=== PATIENT | female | born 1955 | race Caucasian/White ===

== ENCOUNTER 2018-08-19 05:49 | Inpatient (IN) | payer BC, OTHER ==
[2018-08-19] VITALS (25 sets, daily range): BP systolic 114–159; BP diastolic 42–107
[~2018-08-19] VITALS: Ht 157.5 cm; Wt 49.9 kg
--- NOTE | ~2018-08-19 | HC ---
[facility] [place] [address] CONSULTATION Name: FERNANDO CRAIG Room #: 247-P [facility] IN M.R.#: [id number] Admission: 08/19/18 ������������������ Attend Phys: Mega Guy MD Discharge: ������������������ Date of : 57 Report #: [id number] THIS REPORT FOR: //name// CC: Alex Daniels DO Mega Ramos MD DATE OF SERVICE: 08/22/2018 HISTORY OF PRESENT ILLNESS: The patient is seen in consultation at the request of Dr. Guy and the hospitalist regarding diagnosis of small cell lung cancer made at recent bronchoscopy. She was admitted following a bronchoscopy with complaints of worsening shortness of breath and finding of a pneumothorax. She had recently undergone outpatient evaluation for worsening dyspnea and a chest x-ray revealed right hilar and subcarinal lymphadenopathy leading to the above workup. She has a longstanding history of chronic obstructive pulmonary disease, has been following with Dr. Ephraim Cavazos. 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 Dr. Christensen was a radiation therapist and I am trying to obtain those records. She cannot remember the name of her medical oncologist. MEDICATIONS: As in the MFR. ALLERGIES: None known. SOCIAL HISTORY: She is a reformed smoker, stopping a year ago after 25+ pack years. FAMILY HISTORY: Not contributory. REVIEW OF SYSTEMS: As in history of present illness. PHYSICAL EXAMINATION: GENERAL: Shows her to be alert. HEENT: Shows eye glasses. Her mouth is clear. [facility] [address] [place] [address] CONSULTATION Name: FERNANDO CRAIG Room #: 247-P ADM IN .R.#: [id number] Admission: 08/19/18 ������������������ Attend Phys: Mega Guy MD Discharge: ������������������ Date of : 57 Report #: [id number] NECK: Supple. LYMPHATICS: Revealed no supraclavicular adenopathy. She does have crepitation from subcutaneous emphysema. CHEST: Clear. There is chest tube present on the right. ABDOMEN: Soft. SKIN: Normal turgor. EXTREMITIES: No clubbing, cyanosis, or edema. NEUROLOGIC: No focal localizing signs. PSYCHIATRIC: Not agitated or confused. ASSESSMENT: Small cell lung cancer. PLAN: Her pathology has been confirmed with Dr. Serrano and we will plan to proceed with systemic chemotherapy. We will try and obtain her old records regarding her prior radiation therapy if this ends up being limited stage disease. We have talked about obtaining a PET scan as an outpatient to complete her staging lung with brain imaging on discharge. I would anticipate when lung is reexpanded and chest tube is removed, this can be accomplished as an outpatient. Thanks for allowing me to see her with you in consultation and asking me to participate in her care. ��������������������������������������������� ���������������������������������������� By: ��������������������������������������������� 0936 [id number] MD christine Ortiz
[~2018-08-19 05:49] MED LIST: ALBUTEROL2.5 MG/31 INH; ALPRAZOLAM 0.0.25 M1 PO; COLACE100 MG PO; COMPAZINE10 M1; DALIRESP500 MCG PO; DITROPAN XL5 M1 PO; K-DUR10 ME1 PO; LISINOPRIL20 MG PO; OMEPRAZOLE20 M2 PO; OMEPRAZOLE40 MG PO; PREDNISOLONE 5 M5 M1 PO; STIOLTO RESPIMAT4 GM INH; SYMBICORT80 MCG/4.1; SYMBICORT80 MCG/4.1 INH; VENTOLIN HFA 1818 GM INH; VENTOLIN HFA INH8 GM; VESICARE 5 MG TA5 MG; ZOFRAN8 MG
[2018-08-19 11:13] LABS: SOURCE BAL
[2018-08-19 11:14] LABS: CLARITY TURBID; COLOR RED; TOTAL VOLUME 13 mL
[2018-08-19 11:15] LABS: BF NUCLEATED CELLS 292; BF RBC 27039
[2018-08-19 11:32] LABS: BF NEUTROPHILS 85
[2018-08-19 11:33] LABS: BF MACROPHAGE 5
--- NOTE | 2018-08-19 19:24 | NUR ---
1430 - PT TO ICU BED 247 /S DIFFICULTY - MONITORS APPLIED - VSS - AWAKE/ALERT - COMPLAINT OF PAIN - CHEST TUBE INTACT AND TO -20 SUCTION - AT BEDSIDE
--- NOTE | 2018-08-19 19:27 | NUR ---
174 - PT IN RESP DISTRESS - SATS DROP TO 80S - SUBQ EMPH INCREASING - DR. DAVIS CONTACTED AND ORDERS RECEIVED - TROUBLE SHOOTING OF CT SHOWED A SMALL KINK IN THE TUBING - UPON STRAIGHTENING OF TUBING PT STATUS IMMEDIATELY BEGAN IMPROVING - PAIN MEDS GIVEN - STAT PORTABLE CHEST XRAY AT BEDSIDE - AT BEDSIDE
[2018-08-20] VITALS (21 sets, daily range): BP systolic 83–155; BP diastolic 58–88
[2018-08-20 04:17] LABS: HEMOGLOBIN 13.4 gm/dL (12.0-15.0); MCH 30.1 pg (26.0-34.0); MCHC 32.6 g/dL (28.0-37.0); MCV 92.5 fL (80.0-100.0); RBC 4.44 mil/uL (4.20-5.00); RDW 14.2 % (10.5-14.5); WBC 19.1 thou/uL (4.0-11.0)
[2018-08-20 04:25] LABS: MAGNESIUM 1.6 mg/dL (1.8-2.4); POTASSIUM 3.9 mmol/L (3.5-5.1)
--- NOTE | 2018-08-20 05:59 | NUR ---
Pt a/o x 4. O2 3L NC with O2 Sats in mid 90s on average without c/o SOA. After ABG draw this AM, pt c/o SOA. O2 NC increased to 6L with O2 Sats in -. Chest tube site reassessed. No kinks noted as previous assessments throughout this shift. Total chest tube output 20 mL serous for this shift. Shrinking subq emphasema area noted on R anterior chest. No expansion of subq emphasema at right lateral back/chest area. RT called immediately after pt c/o SOA. Breathing treatment given by RT. Pt resting in bed at this time stating "feeling better now". Bed alarm on. Fall precautions maintained. Call light within reach. Will continue to monitor.
[2018-08-20 16:17] LABS: URINE BILIRUBIN NEGATIVE (Negative); URINE BLOOD NEGATIVE (Negative); URINE COLOR YELLOW; URINE GLUCOSE-RANDOM* NEGATIVE (Negative); URINE KETONES 1+ (Negative); URINE PROTEIN (DIPSTICK) NEGATIVE (Negative); URINE SPECIFIC GRAVITY >= 1.030 (1.005-1.035); URINE UROBILINOGEN 0.2 E.U./dl (0.2-1.0)
[2018-08-20 16:19] LABS: URINE CLARITY HAZY; URINE LEUKOCYTES-REFLEX 1+ (Negative); URINE NITRITE-REFLEX POSITIVE (Negative)
[2018-08-20 16:25] LABS: BACTERIA-REFLEX >30 Many /HPF (None Seen); SQUAMOUS 0-3 Few /LPF (0-3); URINE RBC None Seen /HPF (0-2); URINE WBC-REFLEX >25 Many /HPF (0-5)
[2018-08-20 16:26] LABS: CASTS None Seen /LPF (None Seen); CRYSTALS None Seen /LPF (None Seen)
--- NOTE | 2018-08-20 16:34 | NUR ---
PT REMAINS A/O THROUGH SHIFT - PLEASANT AND COOPERATIVE PARTICIPATING IN CARE - OOB X 1 FOR 30 MINUTES - ABLE TO MOVE SELF EASILY ON/OFF BEDPAN - CHEST TUBE REMAINS IN PLACE - LEAK DECREASING - SUBCUTANEOUS EMPHYSEMA REMAINS MOSTLY IN CHEST AND RIGHT LATERAL BACK - PAIN HAS BEEN WELL CONTROLLED /C PO MEDS AND LIDOCAINE PATCH
[2018-08-21] VITALS (41 sets, daily range): BP systolic 92–175; BP diastolic 49–107
--- NOTE | 2018-08-21 07:44 | NUR ---
At 0058, pt accidentally pulled out small-bore chest tube. Pt a/o x 4, on Hi Flow NC 10L, calm and coorperative, no apparent distress noted. Vaseline gauze applied to incision site immediately, Dr. Guy notified at once, new order received. Consent signed for new chest tube insertion. New chest tube inserted by ER doctor this AM. Pt c/o right chest pain after new chest tube insertion. Pain meds given PRN. VSS with O2 Sats in 93-94% on 3L Hi-Flow NC from 8-10L Hi-Flow NC prior to and during new chest tube insertion. Dr. Guy updated with pt condition s/p new chest tube insertion. Pt resting in bed with eyes closed without apparent distress noted. Fall precautions maintained. Call light within reach. Shift change completed with incoming day-shift RN.
--- NOTE | 2018-08-21 12:20 | NUR ---
ASSESSMENT-PT LIVES AT HOME WITH HER WHO IS IN GOOD HEALTH AND WORKS FULL-TIME. THEY LIVE IN A DOUBLE WIDE TRAILER HOME. PT DOES THE COOKING, CLEANING AND LAUNDRY. THEY HAVE 2 SONS, DIL'S AND 9 GRANDKIDS IN THE AREA. PT CONCERNED SHE MAY NEED OXYGEN AT HOME. NURSING REPORTS PT JUST GIVEN LUNG CA DX. PT SAYS HER SPOUSE IS YOUNGER THAN SHE AND THEY BOTH DRIVE. FOLLOWING TO ASSIST WITH DC PLANNING. EMOTIONAL SUPPORT GIVEN.
[2018-08-22] VITALS (28 sets, daily range): BP systolic 93–162; BP diastolic 45–99
--- NOTE | 2018-08-22 06:29 | NUR ---
ASSUMED CARE OF PATIENT AT 0300. VSS, AFEBRILE. C/O PAIN ONCE, GIVEN PRN HYDROCODONE, RELIEF NOTED. CHEST TUBE IN PLACE. USES BED ORTIZ NEEDED. NO OTHER CONCERNS AT THIS TIME.
--- NOTE | 2018-08-22 10:08 | PATH ---
[facility] [address] [place] [address] PATHOLOGY RPT PROCEDURE Name: FERNANDO RCAIG Room #: [facility] IN M.R.#: [id number] ������������������ Admission: 08/19/18 ������������������ Date of : 57 Discharge: Report #: [id number] Path Case #: [id number] Note LCA Accession Number: [id number] TESTS RESULT FLAG UNITS REF RANGE LAB Clinician Provided Cytology Information No. of containers..01 Slide Source: BRONCH BRUSHINGS DIAGNOSIS: 02 BRONCHIAL BRUSHINGS NEGATIVE FOR MALIGNANT CELLS. REACTIVE BRONCHIAL CELLS ARE PRESENT. RED BLOOD CELLS ARE PRESENT. Comment: The cells identified in the subcarinal biopsy tissue ([id number]) are not present in the current brushing smears examined. The biopsy tissue is pending immunohistochemical stains. Please refer to a separate report. Signed out by: 02 Soni Serrano MD, Pathologist NPI- [id number] Performed by: 01 Elisabeth Greene, Dredge Worker ([facility]) FLAG LEGEND: L-Low Normal,H-High Normal,LL-Alert Low,HH-Alert High <-Panic Low,>-Panic High,A-Abnormal,AA-Critical Abnormal Performed at: [address] [place] [address] Hiram Taylor MD, [address] [address] Soni Serrano MD, Specimen Comment: A duplicate report has been generated due to demographic updates. Performed at: [address], [place], [place] [id number] MD Hiram Taylor MD Phone: [phone]
--- NOTE | 2018-08-22 10:08 | PATH ---
[facility] [place] [address] PATHOLOGY RPT PROCEDURE Name: FERNANDO CRAIG Room #: 247-P ADM IN M.R.#: [id number] ������������������ Admission: 08/19/18 ������������������ Date of : 57 Discharge: Report #: [id number] Path Case #: [id number] Note LCA Accession Number: [id number] TESTS RESULT FLAG UNITS REF RANGE LAB Clinician Provided Cytology Information No. of containers..01 Other (Miscellaneous) Source: BRONCH BRUSHTIP DIAGNOSIS: BRONCH BRUSHTIP INCONCLUSIVE. REACTIVE BRONCHIAL CELLS ARE PRESENT. PULMONARY MACROPHAGES (DUST CELLS) ARE PRESENT. Comment: Few atypical cells are identified with high nuclear to cyotplasmic ratio. Much of the specimen is comprised of reactive bronchial epithelial cells.The limited nature precludes a definitive interpretation. Diffential diagnosis includes neoplastic cells or reactive cells. [id number], subcarinal mass biopsy tissue is pending immunohistochemical stains. Please refer to a separate report to follow. Signed out by: 02 Soni Serrano MD, Pathologist NPI- [id number] Performed by: 01 Elisabeth Greene, Archives Technician (AS[facility]) FLAG LEGEND: L-Low Normal,H-High Normal,LL-Alert Low,HH-Alert High <-Panic Low,>-Panic High,A-Abnormal,AA-Critical Abnormal Performed at: [address] [place] [address] Hiram Taylor MD, [address] [address] Soni Serrano MD, Specimen Comment: A duplicate report has been generated due to demographic updates. Performed at: [address], [place], [place] [id number] MD Hiram Taylor MD Phone: [phone]
--- NOTE | 2018-08-22 10:08 | PATH ---
[facility] [address] [place] [address] PATHOLOGY RPT PROCEDURE Name: FERNANDO CRAIG Room #: [facility]-P ADM IN M.R.#: [id number] ������������������ Admission: 08/19/18 ������������������ Date of : 57 Discharge: Report #: [id number] Path Case #: [id number] Note LCA Accession Number: [id number] TESTS RESULT FLAG UNITS REF RANGE LAB Clinician Provided Cytology Information No. of containers..01 Slide Source: [A] 01 BRONCH MICRO BRUSH DIAGNOSIS: [A] 02 BRONCH MICRO BRUSH SUSPICIOUS FOR MALIGNANCY. REACTIVE BRONCHIAL CELLS ARE PRESENT. RED BLOOD CELLS ARE PRESENT. Comment: Cells identified in these smears resemble the ones noted in the biopsy tissue [id number], designated as the subcarinal mass. That specimen is pending immunohistochemical stain analysis. Please refer to a separate report to follow. Signed out by: 02 Soni Serrano MD, Pathologist NPI- [id number] Performed by: 01 Elsiabeth Greene, [employer] Senior Officer ([employer]) FLAG LEGEND: L-Low Normal,H-High Normal,LL-Alert Low,HH-Alert High <-Panic Low,>-Panic High,A-Abnormal,AA-Critical Abnormal Performed at: [address] [place] [address] Hiram Taylor MD, [address] [address] Soni Serrano MD, Specimen Comment: [id number] Specimen Comment: A duplicate report has been generated due to demographic updates. Performed at: [address], [place], [place] [id number] MD Hiram Taylor MD Phone: [phone]
--- NOTE | 2018-08-22 12:10 | PATH ---
[facility] [place] [address] PATHOLOGY RPT PROCEDURE Name: ANGELITA PRESCOTTAndrea Kelley Room #: 247-P [facility] IN M.R.#: [id number] ������������������ Admission: 08/19/18 ������������������ Date of : 57 Discharge: Report #: [id number] Path Case #: [id number] LCA Accession Number: [id number] . 01 Material submitted: . PART A: SUBCARINAL MASS BIOPSY PART B: RIGHT HILAR MASS BIOPSY . 01 Clinical history: . Carinal mass Right hilar mass . 02 Diagnosis: A. Subcarinal mass, biopsy: - MINUSCULE FRAGMENTS MOST COMPATIBLE WITH A SMALL CELL CARCINOMA (PLEASE SEE COMMENT). . B. Tissue designated as "right hilar mass", biopsy: - No tissue present for evaluation. (IUV:jayla; 08/21/2018) QMS/08/21/2018 . 02 Comment: Immunohistochemical stains are performed on block A1 to support the diagnosis rendered and included CD56, CD45, AE1/AE3, synaptophysin, chromogranin, and TTF-1. The tumor shows perinuclear dot-like reactivity to AE1/AE3, shows granular reactivity with synaptophysin and nuclear reactivity with TTF-1. The tumor is nonreactive to the remainder of stains. The nonreactive CD45 excludes a possibility of a lymphoma. . Dr. Nisa Simons has seen insurance follow up representative slides of this case and concurs with the diagnosis rendered. Findings of this case are discussed with Dr. Mega Guy in the morning of 08/21/18. . (IUV:jayla; 08/21/2018) . 02 Electronically signed: . Soni Serrano MD, Pathologist NPI- [id number] . 01 Gross description: . A. The specimen is received in formalin, labeled "April Prescott, subcarinal mass" and consists of a few fragments of soft barnard tissue measuring 0.5 x 0.3 x 0.1 cm in aggregate which are entirely submitted in A1. . B. The specimen is received in formalin, labeled "April Prescott, R hilar biopsy" and consists of a few minute fragments of santiago-[place] [address] PATHOLOGY RPT PROCEDURE Name: APRIL PRESCOTT Room #: 247-P ADM IN M.R.#: [id number] ������������������ Admission: 08/19/18 ������������������ Date of : 57 Discharge: Report #: [id number] Path Case #: [id number] measuring 0.4 x 0.1 x 0.1 cm in aggregate which are entirely submitted in B1. Due to the nature of the specimen it may not survive processing. (SDY; 08/19/2018) SYU/SYU . 02 Pathologist provided ICD-10: C34.00 . 02 CPT . 846496, 431372, X97916, Q20512 Specimen Comment: A courtesy copy of this report has been sent to Specimen Comment: [phone], , . Specimen Comment: Report sent to ,DR JAY / DR WAGGONER Specimen Comment: A duplicate report has been generated due to demographic updates. Performed at: [address], [place] [id number] MD Hiram Taylor MD Phone: [phone] Performed at: [address] [id number] MD Soni Serrano MD Phone: [phone]
--- NOTE | 2018-08-22 13:41 | NUR ---
PT TOLERATED BOTH MEALS. HYDROCODONE/APAP GIVEN X 2 FOR R POSTERIOR BACK/SHOULDER AREA DISCOMFORT DESCRIBED ACHY PRESSURE. UP TO CHAIR, BATHED SELF, BED CHANGED, LUNGS DIMINSHED POSTERIORLY, 02 3L/NC, UP TO BSC TO VOID. SPOUSE PRESENT AND PROVIDING SUPPORT. DEMETRIUS, FARM MACHINE TENDER PRESENT TO START CHEMO.
--- NOTE | 2018-08-22 15:25 | NUR ---
DAY 1 OF 3 DAY CHEMO PROTOCOL TO START TODAY. VISITED WITH DR. FRANK' NURSE, SAUL, TO CONFIRM START DAY IS TODAY. PT STATES DR. FRANK WAS IN TODAY AND VERIFIED TODAY START DATE. REVIEWED ORDERS AND CLARIFIED PREMEDS WITH DR. FRANK YESTERDAY. PT HAS HAD CHEMO IN THE PAST FOR THROAT CANCER BUT IS UNABLE TO RECALL WHAT DRUGS SHE TOOK. CALLED OFFICE TO SEE IF THEY COULD TELL ME WHAT SHE TOOK BUT THEY HAVE NOT YET BEEN ABLE TO SECURE THE CHART. WILL WATCH PT CLOSELY IN THE EVENT SHE HAS HAD CARBO IN THE PAST. PT INSTRUCTED TO INFORM US IF SHE HAS ANY S/S OF ALLERGIC REACTION. PREMEDS GIVEN ORDERED. NEW PERIPHERAL IV PLACED PRIOR TO START OF CHEMO PT STATES PREVIOUS SITE WAS A LITTLE TENDER WITH INFUSION. NEW IV IN R AC, EXCELLENT BLOOD RETURN. CARBO INFUSING AT THIS TIME, ABOUT HALF WAY COMPLETE. VS REMAIN STABLE (REFER TO PCI FOR Q15M VS). CURRENT BP 157/68, HR 84, SAT 94. TEACHING COMPLETED WITH PT, FOR CHEMO PROTOCOL AND SAFE HANDLING PRECAUTIONS. REVIEWED SAFE HANDLING PRECAUTIONS WITH PT'S NURSE, HARJIT, AND SIGNAGE POSTED ON DOOR. SAFE HANDLING CART OUTSIDE DOOR OF ROOM. REMAINS AT SIDE. PT WATCHING TV WITHOUT COMPLAINTS.
--- NOTE | 2018-08-22 19:15 | NUR ---
PT DENIED ANY SYMPTOMS AT THIS TIME FROM CHEMO. NOTED PT COMPLEXION DULL WITH BROWNISH TINT. SMALL AMOUNT OF EVENING MEAL CONSUMED PER PT PREFERENCE, DENIES NAUSEA AT THIS TIME. CONTINUING CHEMO PRECAUTIONS, REPORT TO NARESH DAVILA.
[2018-08-23] VITALS (20 sets, daily range): BP systolic 107–170; BP diastolic 45–104
--- NOTE | 2018-08-23 07:25 | NUR ---
UNEVENTFUL NIGHT FOR PT, PT WELL CONTROLLED , NO NAUSEA, VOIDING ADEQUATE AMOUNTS , SNACKING DURING THE NIGHT, VSS. CHEST TUBE IN PLACE, PATENT, DRAINING TO WATER SEAL.
--- NOTE | 2018-08-23 10:20 | NUR ---
ASSESSMENTS DOCUMENTED. CHEST XRAY THIS AM COMMUNICATED TO DR. DAVIS. ORDERS FOR IR TO REMOVE CT. PT TO HAVE CHEMO THIS AFTERNOON. NOTED MRSA IN SPUTUM - ON ISOLATION. COMMUNICATED TO DR. SILVA FOR CHANGE IN ANTIBIOTIC. REPORT GIVEN TO CM INFANTE.
--- NOTE | 2018-08-23 11:08 | NUR ---
Rt side chest tube removed in pt's room. without difficulty. Placed air occlusive sterile dsg with vas gauze over site. Pt tolerarated well. VSS. NO comlpications noted. Pt reading/ resting quietly in bed post procedure without complaints
--- NOTE | 2018-08-23 14:44 | NUR ---
PT ON DAY 2 OF CHEMO. CHEST TUBE IS OUT NOW. REMAINS ON O2 3 L NC. THERAPY EVALS ORDERED AND PENDING. ON IV VANCO FOR MRSA + SPUTUM.
--- NOTE | 2018-08-23 15:14 | NUR ---
DAY 2 OF CHEMO STARTED. PREMEDS GIVEN ORDERED. NEW IV WAS PLACED BY VASCULAR ACCESS TEAM IN PROXIMAL L FOREARM, GREAT BLOOD RETURN, PATENT IV. RESPIRATORY THERAPIST ASSISTANT-16 BEGUN AND SET TO INFUSE OVER 1 HOUR. REVIEWED TEACHING WITH PT AND DISCUSSED WHAT TO EXPECT ONCE DISMISSED: WEEKLY LABS, CHEMO AGAIN IN 3 WEEKS, F/U VISIT WITH CAMP DISHWASHER AT [facility] TO DO MORE THOROUGH TEACHING AND SYMPTOM MANAGEMENT VISIT. REMINDED PT TO CALL OFFICE (NUMBERS PROVIDED FOR BOTH THE NURSE DIRECT LINE FOR M-F DAYTIME CALLS AND THE MAIN OFFICE NUMBER FOR AFTER HOURS). PT HAS THESE NUMBERS PROGRAMMED INTO HER CELL PHONE. PT'S SPOUSE MARIANELA RECORDS FROM CHEMO GIVEN IN 2010 WHICH SHOWED SHE RECEIVED CHEMORADIOTHERAPY WITH CISPLATIN GIVEN. PT DEMONSTRATES GOOD UNDERSTANDING OF SITUATION, CHEMO, WHAT TO EXPECT, NEXT STEPS.
--- NOTE | 2018-08-23 16:14 | NUR ---
PT COMPLETED 2ND DOSE OF VP[facility] INCIDENT, VSS, NO S/S REACTION, NO COMPLAINTS VERBALIZED, IV REMAINS PATENT. VANCOMYCIN RESUMED AT THIS TIME.
--- NOTE | 2018-08-23 16:29 | NUR ---
ASSUMED CARE OF PT AT 1100 THIS SHIFT. PT HAS BEEN COOPERATIVE, HAS HAS DENIED ANY PAIN SINCE CHEST TUBE TAKEN OUT. PT'S IV WAS INFILTRATED, WAS TAKEN OUT, NEW IV PLACED BY IV TEAM. HAS HAD CHEMO THERAPY INFUSION BY CHEMO NURSE, TOLERATED IT WELL. PT WAS STARTED ON VANCOMYCIN, HOWEVER HAD TO BE HELD FOR CHEMO, RESTARTED WHEN CHEMO FINISHED. PT HAS TRANSFER ORDERS OUT OF ICU. PT HAS HAD VISITORS THIS SHIFT, EDUCATION WAS PROVIDED. PLAN OF CARE IS TO CONTINUE TO MONITOR CLOSELY AND TO TRANSFER PT OUT OF ICU WHEN BED IS AVAILABLE.
[2018-08-24] VITALS (9 sets, daily range): BP systolic 127–172; BP diastolic 53–74
--- NOTE | 2018-08-24 04:23 | NUR ---
PT'S VSS OVERNIGHT, NO DISTRESS NOTED ON 3.5L NC, PT DOES DESAT EASILY W/ EXERTION DOWN TO 88% ASSESSMENTS PER DOCUMENTATION. PT IN NSR 60-70'S MOST OF THE NIGHT, PT DOES GET TACHY 100-120'S W/ MOVEMENT. ADEQUATE UOP PER BEDPAN. ADEQUATE PO INTAKE W/ ENSURE SUPPLEMENT WELL. PT LUNG'S SIGNIFICANTLY DIMINISHED POSTERIORLY, ANTERIORLY LUNGS COARSE W/ CRACKLES (SUBQ AIR BILATERAL UPPER CHEST DOWN TO RIGHT LATERAL CHEST PUNCTURE). CT SITE CLEAN/DRY/INTACT. BEDSIDE REPORT GIVEN TO NARESH DAVILA. PT TRANSFERRED TO CCU BY WHEELCHAIR/O2 WITHOUT COMPLICATIONS.
[2018-08-24 05:17] LABS: ABSOLUTE NEUTROPHILS 12.9 thou/uL (1.4-8.2); BASOPHILS 0.3 % (0.0-2.0); EOSINOPHILS 0.1 % (0.0-3.0); HEMATOCRIT 39.4 % (37.0-47.0); HEMOGLOBIN 12.8 gm/dL (12.0-15.0); LYMPHOCYTES 1.4 % (24.0-44.0); MCH 30.6 pg (26.0-34.0); MCHC 32.5 g/dL (28.0-37.0); MCV 94.1 fL (80.0-100.0); MONOCYTES 3.9 % (1.0-8.0); PLATELET COUNT 294 thou/uL (150-400); POLYS 94.3 % (36.0-66.0); RBC 4.18 mil/uL (4.20-5.00); RDW 14.3 % (10.5-14.5); WBC 13.7 thou/uL (4.0-11.0)
[2018-08-24 05:31] LABS: ALBUMIN 2.6 g/dL (3.4-5.0); CALCIUM 9.1 mg/dL (8.5-10.1); CREATININE 0.7 mg/dL (0.6-1.0); MAGNESIUM 1.9 mg/dL (1.8-2.4); POTASSIUM 4.7 mmol/L (3.5-5.1); TOTAL BILIRUBIN 0.3 mg/dL (<0.1-1.0); TOTAL PROTEIN 6.4 g/dL (6.4-8.2)
--- NOTE | 2018-08-24 08:02 | NUR ---
PT TRANSFERED FROM ICU THIS MORNING. PT PROGRESSING WELL TOWARDS GOALS, NO COMPLICATIONS FROM CHEMO , VITALS WNL, PT ON 3L BY NASAL CANNULA, PT GETS SOA WITH EXERTION AND DESATS.
--- NOTE | 2018-08-24 14:21 | NUR ---
PATIENT DOING WELL WITH NO COMPLAINTS OF NAUSEA/VOMITING. TOLERATED DIET. DAY #3 OF CHEMOTHERAPY. ALL LABS WNL. DENIES BLEEDING. NEW IV PLACED IN LAC, RECEIVED GOOD BLOOD RETURN AND FLUSHED EASILY. PREMEDS OF BENADRYL PO AND DECADRON IV GIVEN. RC FROM PHARMACY CHECKED CHEMO WITH THIS RN. ETOPOSIDE STARTED USING CHEMO PRECAUTIONS. PATIENT IN GOOD SPIRITS. FOLLOWUP CARE HAS BEEN ARRANGED. PLANS ARE TO DISCHARGE SOON. MONITORING CLOSELY. AND FAMILY AT BEDSIDE.
--- NOTE | 2018-08-24 20:00 | NUR ---
PATIENT ALERT AND ORIENTED. TOLERATED CHEMO INFUSTION WELL AND WOULD LIKE TO BE DISCHARGE HOME EMI. DR HURT ORDERED RT O2 SAT EXERCISE TEST AND NEEDS TO BE COMPLETED PRIOR TO DISCHARGE. PATIENT REQUEST INHALERS FOR HOME USE. DR. DAVIS AWARE. CHEMO NURSE INDICATED PATIENT WOULD NEED MED FOR NAUSEA AFTER DISCHARGE. AT BEDSIDE FOR MOST OF THE DAY. PATIENT WOULD LIKE TO BE DISCHARGED EMI ON Sunday.
--- NOTE | 2018-08-25 03:52 | NUR ---
ASSESSMENT DOCUMENTED.PT BEEN RESTING IN NO ACUTE DISTRESS.S/P CHEMO W/O ADVERSE RXS.PT DENIES NAUSEA OR ANY OTHER DISCOMFORT.SR ON MONITOR.ON 02 AT 2LITERS PNCS.SATS ADEQUATE.SPOUSE AT BEDSIDE.PT TO DISCHARGE TO HOME THIS MORNING.I WILL CONT TO MONITOR PER POC.
[2018-08-25 05:00] VITALS: BP 168/64
[2018-08-25 08:00] VITALS: BP 135/51
[2018-08-25] MEDS ORDERED: LIDOPATCH1 EACH TRANSDERM (10:04)
[2018-08-25] MEDS ORDERED: MAGNESIUM400 MG PO (10:04)
[2018-08-25] MEDS ORDERED: DOXYCYCLINE HYC50 MG PO (10:04)
[2018-08-25] MEDS ORDERED: ALPRAZOLAM 0.0.25 M1 PO (10:04)
[2018-08-25] MEDS ORDERED: PREDNISONE 20 M20 M1 PO (10:04)
[2018-08-25 11:05] VITALS: BP 123/67
[2018-08-25 11:40] VITALS: BP 135/51
--- NOTE | 2018-08-25 12:42 | NUR ---
PT DISCHARGED TO HOME /C [facility] AND [facility] OXYGEN AT 2L BOTH [facility] ARE AWARE THAT PT IS BEING DISCHARGED TODAY PT WHEEL CHAIRED TO POV - DRIVING
--- NOTE | 2018-08-27 16:46 | NUR ---
PT. DISCHARGED TO HOME WITH O2 [facility] DELIVERED O2 TO HOME AND DCP F/U WITH AGENCY AND FAXED O2 SAT RESULT AND PROG. NOTE AND FACE SHEET TO [facility]. INFO RECEIVED.
== END 2018-08-25 13:30 | disposition home health service (06) | DRG 166 ==
LOC: CATH 05:49 → TBA 05:59 → CATH 10:12 → ICU 15:14 → CATH 15:40 → 2N 08-24 04:42
PROVIDERS: Pediatrics; ADMIT Internal Medicine
PROC: 0B9D8ZX Drainage of Right Middle Lung Lobe, Via Natural or Artificial Opening Endoscopic, Diagnostic (ICD-10-PCS; principal; 2018-08-19)
PROC: 0BBK8ZX Excision of Right Lung, Via Natural or Artificial Opening Endoscopic, Diagnostic (ICD-10-PCS; principal; 2018-08-19)
PROC: 07B74ZX Excision of Thorax Lymphatic, Percutaneous Endoscopic Approach, Diagnostic (ICD-10-PCS; principal; 2018-08-19)
PROC: 0W9900Z Drainage of Right Pleural Cavity with Drainage Device, Open Approach (ICD-10-PCS; principal; 2018-08-19)
PROC: 0BDD8ZX Extraction of Right Middle Lung Lobe, Via Natural or Artificial Opening Endoscopic, Diagnostic (ICD-10-PCS; principal; 2018-08-19)
DX: J93.83 Other pneumothorax (principal); J96.21 Acute and chronic respiratory failure with hypoxia; J96.22 Acute and chronic respiratory failure with hypercapnia; J18.9 Pneumonia, unspecified organism; C34.90 Malignant neoplasm of unspecified part of unspecified bronchus or lung; E46 Unspecified protein-calorie malnutrition; J44.0 Chronic obstructive pulmonary disease with (acute) lower respiratory infection; D72.829 Elevated white blood cell count, unspecified; K21.9 Gastro-esophageal reflux disease without esophagitis; I10 Essential (primary) hypertension; R59.1 Generalized enlarged lymph nodes; F41.1 Generalized anxiety disorder; Z85.818 Personal history of malignant neoplasm of other sites of lip, oral cavity, and pharynx; Z92.21 Personal history of antineoplastic chemotherapy; Z92.3 Personal history of irradiation; Z87.891 Personal history of nicotine dependence; Z68.20 Body mass index [BMI] 20.0-20.9, adult
CPT/HCPCS: 10078; 10081; 62110; 62900; 70005

== ENCOUNTER 2018-09-01 19:19 | Emergency (ER) | payer BC, OTHER ==
[~2018-09-01] VITALS: Ht 157.5 cm; Wt 53.5 kg
[~2018-09-01 19:19] MED LIST changes: +DOXYCYCLINE HYC50 MG PO; +LIDOPATCH1 EACH TRANSDERM; +MAGNESIUM400 MG PO; +PREDNISONE 20 M20 M1 PO
[2018-09-01 20:04] LABS: HEMOGLOBIN 11.2 gm/dL (12.0-15.0); PLATELET COUNT 57 thou/uL (150-400)
[2018-09-01 20:06] LABS: MCH 31.1 pg (26.0-34.0); MCHC 33.9 g/dL (28.0-37.0); MCV 91.8 fL (80.0-100.0); RBC 3.59 mil/uL (4.20-5.00); RDW 13.4 % (10.5-14.5)
[2018-09-01 20:06] LABS: URINE BILIRUBIN NEGATIVE (Negative); URINE BLOOD NEGATIVE (Negative); URINE CLARITY CLEAR; URINE COLOR YELLOW; URINE GLUCOSE-RANDOM* NEGATIVE (Negative); URINE KETONES NEGATIVE (Negative); URINE LEUKOCYTES-REFLEX NEGATIVE (Negative); URINE NITRITE-REFLEX NEGATIVE (Negative); URINE PROTEIN (DIPSTICK) NEGATIVE (Negative); URINE UROBILINOGEN 0.2 E.U./dl (0.2-1.0)
[2018-09-01 20:07] LABS: ANION GAP 6 mmol/L (7-16); BUN 10 mg/dL (7-18); CHLORIDE 98 mmol/L (98-107); CO2 34 mmol/L (21-32); CREATININE 0.8 mg/dL (0.6-1.0); GLUCOSE 97 mg/dL (74-106); POTASSIUM 4.3 mmol/L (3.5-5.1); SODIUM 138 mmol/L (136-145)
[2018-09-01 20:08] LABS: WBC 0.5 thou/uL (4.0-11.0)
[2018-09-01 20:15] LABS: ALBUMIN 3.1 g/dL (3.4-5.0); MAGNESIUM 1.5 mg/dL (1.8-2.4); SGOT 12 U/L (15-37); SGPT 21 U/L (30-65); TOTAL BILIRUBIN 0.6 mg/dL (<0.1-1.0); TOTAL PROTEIN 6.5 g/dL (6.4-8.2); TROPONIN-I <0.06 ng/mL (<0.06)
--- NOTE | 2018-09-01 20:26 | EKG ---
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1955 Requested By: Brad Luu Order Number: [id number] MD: Zeb Juárez Measurements Intervals [place] Rate: 86 P: 67 LA: 165 QRS: 48 QRSD: 83 T: 65 QT: 311 QTc: 372 Interpretive Statements Sinus rhythm Atrial premature complexes Anteroseptal infarct, age indeterminate Compared to ECG 02/15/2011 07:26:31 Atrial premature complex(es) now present Myocardial infarct finding still present Electronically Signed On 09-01-2018 20:26:12 MANAGER ZONE by Zeb Juárez [email or web address] ��������������������������������������������� <ELECTRONICALLY SIGNED> ���������������������������������������� By: Zeb Juárez MD ��������������������������������������������� 09/01/182025 31 31 Zeb Juárez MD /EPI
[2018-09-01 20:48] LABS: ATYPICAL LYMPHS 2 %; PLATELET ESTIMATE DEC
[2018-09-01 20:49] LABS: TOXIC GRANULATION 3+
[2018-09-01] MEDS ORDERED: OSELB75 PO (20:52)
[2018-09-01] MEDS ORDERED: TRAMADOL 50 MG50 MG PO (21:27)
[2018-09-01 21:33] VITALS: BP 159/63
== END 2018-09-01 21:33 | disposition home or self-care (01) ==
LOC: ER 19:19
PROVIDERS: Emergency Medicine
DX: B37.0 Candidal stomatitis (principal); C34.91 Malignant neoplasm of unspecified part of right bronchus or lung; E83.42 Hypomagnesemia; J10.1 Influenza due to other identified influenza virus with other respiratory manifestations; D72.819 Decreased white blood cell count, unspecified; D69.6 Thrombocytopenia, unspecified; I48.91 Unspecified atrial fibrillation; I10 Essential (primary) hypertension; K21.9 Gastro-esophageal reflux disease without esophagitis; J44.9 Chronic obstructive pulmonary disease, unspecified; Z87.891 Personal history of nicotine dependence; Z79.899 Other long term (current) drug therapy

== ENCOUNTER → 2018-09-19 | Outpatient (CLI) | payer BC, OTHER ==
[~2018-09-19] VITALS: Ht 157.5 cm; Wt 47.2 kg
[~2018-09-19] MED LIST changes: +OSELB75 PO; +TRAMADOL 50 MG50 MG PO
[2018-09-19 10:12] VITALS: BP 129/62
== END | disposition home or self-care (01) ==
LOC: SPEC 09:39
DX: Z45.2 Encounter for adjustment and management of vascular access device (principal); C34.91 Malignant neoplasm of unspecified part of right bronchus or lung; I10 Essential (primary) hypertension; J44.9 Chronic obstructive pulmonary disease, unspecified; K21.9 Gastro-esophageal reflux disease without esophagitis; Z98.890 Other specified postprocedural states; Z79.899 Other long term (current) drug therapy; Z85.819 Personal history of malignant neoplasm of unspecified site of lip, oral cavity, and pharynx

== ENCOUNTER 2018-10-23 08:55 | Inpatient (IN) | payer BC, OTHER ==
[~2018-10-23] VITALS: Ht 157.5 cm; Wt 42.6 kg
--- NOTE | ~2018-10-23 | P ---
[facility] [place] [address] PROCEDURE REPORT Name: FERNANDO CRAIG Room #: 463-P [facility] IN M.R.#: [id number] Admission: 10/23/18 ������������������ Attend Phys: Jr Hernandez MD Discharge: ������������������ Date of : 57 Report #: [id number] THIS REPORT FOR: //name// CC: Alex Cavazos MD BRIEF HISTORY: The patient is a 62-year-old woman who has a history of a small cell lung cancer who recently received radiation therapy and concomitant chemotherapy. She presented to [place] with history of melenic stools. She also has a prior history of throat cancer with radiation therapy. In addition, she is neutropenic. PREOPERATIVE DIAGNOSIS: Melena. POSTOPERATIVE DIAGNOSES: 1. Severe segmental esophagitis, mid esophagus, likely secondary to recent therapy. 2. High-grade benign appearing stricture, upper esophageal sphincter. MEDICATIONS: Deep sedation with propofol per anesthesia. SPECIMEN: Biopsies of esophagitis. ESTIMATED BLOOD LOSS: 3 mL. PROCEDURE: EGD with balloon dilation of esophageal stricture and biopsy. FINDINGS: Prior to propofol sedation, procedure of upper endoscopy was discussed with the patient as well as potential risks and its complications. She indicates she understands and desires to proceed. DESCRIPTION OF PROCEDURE: With the patient in left lateral decubitus position, the Olympus video endoscope was inserted into the oropharynx. Upon passage of the scope into the oropharynx, I was unable to pass the scope. Beyond the level of the cricopharyngeus, there was a smooth benign appearing stricture. It was too small to allow forward passage of the scope. We then advanced an 8, 9, 10-mm balloon with guidewire with initially guidewire, then balloon catheter through the strictured area. We dilated all 3 levels and following dilation at a 10-mm level, the scope still would not pass. We then passed an 11, 12 and 13-mm catheter again over guidewire. After dilation with the 11-mm balloon, the scope would pass. The stricture was completely smooth and benign. Following dilation, there was a very minor superficial mucosal tear. The mucosa in the proximal esophagus otherwise was normal. However, in the mid esophagus, there [address] [address] PROCEDURE REPORT Name: FERNANDO CRAIG Room #: 463-P [facility] IN .R.#: [id number] Admission: 10/23/18 ������������������ Attend Phys: Jr Hernandez MD Discharge: ������������������ Date of : 57 Report #: [id number] was a 5-6 cm segment of diffuse circumferential esophagitis consistent with the segment of radiation esophagitis. There were distinct margins proximally and distally. The mucosa beyond the stricture down the squamocolumnar junction was normal. I also might point out there was no evidence of active bleeding. The squamocolumnar junction was normal. The scope was advanced in the stomach, which was examined on end view as well as retroflexed views. There was normal appearing gastric mucosa. Upon retroflexion, no mass lesions were seen. The pylorus, duodenal bulb, and postbulbar duodenal sweep were all inspected and noted to be unremarkable. At that point, the scope was slowly withdrawn and careful circumferential views confirmed the above findings. The patient tolerated procedure well. Biopsies were obtained to the esophagitis. DISPOSITION: The patient with recent melenic stools. She has significant radiation esophagitis, which certainly may have been the source of her melena, but active bleeding is not seen today. Biopsies were obtained. We will continue the patient on PPI and also sucralfate slurry. In addition, she may benefit from further dilation of her upper esophageal sphincter in the future. ��������������������������������������������� ���������������������������������������� By: ��������������������������������������������� [id number] Alvin Patel MD /dudley
[2018-10-23 08:56] VITALS: BP 141/70
[2018-10-23 09:18] LABS: URINE BILIRUBIN NEGATIVE (Negative); URINE BLOOD 1+ (Negative); URINE CLARITY CLEAR; URINE COLOR YELLOW; URINE GLUCOSE-RANDOM* NEGATIVE (Negative); URINE KETONES TRACE (Negative); URINE LEUKOCYTES-REFLEX NEGATIVE (Negative); URINE NITRITE-REFLEX NEGATIVE (Negative); URINE PROTEIN (DIPSTICK) 1+ (Negative); URINE SPECIFIC GRAVITY 1.015 (1.005-1.035); URINE UROBILINOGEN 0.2 E.U./dl (0.2-1.0)
[2018-10-23 09:28] LABS: BACTERIA-REFLEX >30 Many /HPF (None Seen); CASTS None Seen /LPF (None Seen); CRYSTALS None Seen /LPF (None Seen); SQUAMOUS 0-3 Few /LPF (0-3); URINE RBC 0-2 Rare /HPF (0-2); URINE WBC-REFLEX 0-5 Rare /HPF (0-5)
[2018-10-23] MEDS ORDERED: ZYPREXA 10 MG T10 MG PO (09:45)
[2018-10-23 09:48] LABS: HEMATOCRIT 21.6 % (37.0-47.0); HEMOGLOBIN 7.7 gm/dL (12.0-15.0); MCH 31.3 pg (26.0-34.0); MCHC 35.6 g/dL (28.0-37.0); MCV 87.9 fL (80.0-100.0); PLATELET COUNT 115 thou/uL (150-400); RBC 2.45 mil/uL (4.20-5.00); RDW 13.5 % (10.5-14.5)
[2018-10-23 09:51] LABS: WBC 0.8 thou/uL (4.0-11.0)
[2018-10-23 10:08] LABS: ALBUMIN 2.8 g/dL (3.4-5.0); ANION GAP 9 mmol/L (7-16); BUN 19 mg/dL (7-18); CALCIUM 6.6 mg/dL (8.5-10.1); CHLORIDE 88 mmol/L (98-107); CO2 33 mmol/L (21-32); CREATININE 2.1 mg/dL (0.6-1.0); GLUCOSE 106 mg/dL (74-106); LIPASE 64 U/L (73-393); SGOT 19 U/L (15-37); SGPT 14 U/L (30-65); SODIUM 130 mmol/L (136-145); TOTAL BILIRUBIN 0.3 mg/dL (<0.1-1.0); TOTAL PROTEIN 6.8 g/dL (6.4-8.2); TROPONIN-I <0.06 ng/mL (<0.06)
[2018-10-23 10:10] LABS: POTASSIUM 2.9 mmol/L (3.5-5.1)
[2018-10-23 10:38] LABS: ABSOLUTE NEUTROPHILS 0.1 thou/uL (1.4-8.2); LARGE PLATELETS FEW; METAMYELOCYTES 1 %; PLATELET ESTIMATE NORMAL
[2018-10-23 11:23] VITALS: BP 130/76
[2018-10-23] MEDS ORDERED: TRAMADOL 50 MG50 MG PO (12:05)
[2018-10-23 12:11] VITALS: BP 144/80
--- NOTE | 2018-10-23 15:01 | NUR ---
ADM PT CAME IN FROM ER. PT ORIENTED TO ROOM. ADM ORDERS CARRIED OUT
[2018-10-23 16:07] LABS: HEMOGLOBIN 6.5 gm/dL (12.0-15.0)
[2018-10-23 16:11] LABS: HEMATOCRIT 18.8 % (37.0-47.0)
[2018-10-23 19:54] VITALS: BP 122/70
[2018-10-23 20:41] VITALS: BP 115/59; BP 124/63
[2018-10-23 23:36] VITALS: BP 124/63
[2018-10-24 01:04] LABS: HEMATOCRIT 22.3 % (37.0-47.0); HEMOGLOBIN 7.7 gm/dL (12.0-15.0)
--- NOTE | 2018-10-24 01:40 | NUR ---
ASSUMED CARE AROUND 1900. AXOX4. CALLS APPROPRIATELY. LOW H&H ADRESSED TO [employer] ORNAMENT MAKER FOR HOSPITALIST AND ONOLOGY , HAND ORNAMENT MAKER . 1UNIT OF RBC GIVEN TO PT. ID ORDERED CEFEPIME AND VANCOMYCIN FOR SEPSIS. STARTED. CRITICALLY LOW MG ADDRESSED AND REPLCAED ALSO. , FROM GI ORDERED SERIAL H&H AND TO COLLECT STOOL FOR TESTING. WILL COLLECT WHEN AVAILABLE. NO S/S ACUTE DISTRESS NOTED OR REPORTED AT THIS TIME. WILL CONT TO MONITOR FOR ANY CHANGES IN CONDITION.
[2018-10-24 03:46] VITALS: BP 129/46
[2018-10-24 05:48] LABS: HEMATOCRIT 22.5 % (37.0-47.0); HEMOGLOBIN 7.8 gm/dL (12.0-15.0); MCH 30.4 pg (26.0-34.0); MCHC 34.8 g/dL (28.0-37.0); MCV 87.3 fL (80.0-100.0); PLATELET COUNT 113 thou/uL (150-400); RBC 2.58 mil/uL (4.20-5.00); RDW 13.3 % (10.5-14.5)
[2018-10-24 05:53] LABS: CALCIUM 7.5 mg/dL (8.5-10.1); CREATININE 1.6 mg/dL (0.6-1.0); MAGNESIUM 2.6 mg/dL (1.8-2.4)
[2018-10-24 06:00] LABS: POTASSIUM 3.9 mmol/L (3.5-5.1)
[2018-10-24 06:25] LABS: ABSOLUTE NEUTROPHILS 0.3 thou/uL (1.4-8.2)
[2018-10-24 06:26] LABS: PLATELET ESTIMATE DECREASED
[2018-10-24 08:55] VITALS: BP 138/63
[2018-10-24 09:11] LABS: HEMATOCRIT 24.5 % (37.0-47.0); HEMOGLOBIN 8.5 gm/dL (12.0-15.0)
--- NOTE | 2018-10-24 09:37 | EKG ---
[place] [address] [facility] [place] [address] ELECTROCARDIOGRAM REPORT Name: FERNANDO CRAIG Room #: 463-P ADM IN M.R.#: [id number] ������������������ Admission: 10/23/18 ������������������ Attend Phys: Jr Hernandez MD Discharge: ������������������ Date of : 57 Report #: [id number] ����������������������������������������������������������������� [id number] THIS REPORT FOR: //name// [facility] ED Test Date: 2018-10-23 Test Time: 09:28:39 Pat Name: FERNANDO CRAIG Department: Room: 463 Gender: F Terminal Computer Operator: : 1955 Requested By: Brad Luu Order Number: [id number] MD: Jake Shafer Measurements Intervals Gypsy Rate: 96 P: 82 MN: 161 QRS: 44 QRSD: 95 T: 68 QT: 370 QTc: 468 Interpretive Statements Sinus rhythm Right atrial enlargement Anterior infarct, old Compared to ECG 09/01/2018 19:32:05 Atrial premature complex(es) no longer present Electronically Signed On 10-24-2018 9:37:19 CDT by Jake Shafer [email or web address] ��������������������������������������������� <ELECTRONICALLY SIGNED> ���������������������������������������� By: Jake Shafer MD, [facility] ��������������������������������������������� 10/24/1837 7 7 Jake Shafer MD, [facility] /EPI
--- NOTE | 2018-10-24 10:43 | NUR ---
Recommend to discontinue heart healthy diet restriction in this pt with severe protein calorie malnutrition
--- NOTE | 2018-10-24 13:06 | NUR ---
PT ADMITTED RELATED TO FEVER, NEUTROPENIA. CM REVIEWED CHART AND SPOKE WITH CARE TEAM. CM MET WITH PT AT BEDSIDE THIS DAY. PT INDICATED SHE WILL BE DISCHARGING TO A MOBILE HOME WITH 5 STEPS TO ENTER AND NO STEPS INSIDE. PT INDICATED SHE HAD USED A 4WW TO ASSIST WITH MOBILITY IN THE COMMUNITY. PT INDICATED SHE IS GOING FOR CANCER TREATMENT AT [facility]. PT INDICATED SHE HAD HOME HEALTH IN THE PAST BUT CAN'T RECALL PROVIDER. PT INDICATED SHE PLANS TO RETURN HOME ONCE MEDICALLY STABLE. CM TO FOLLOW INDICATED WITH DC PLANNING.
[2018-10-24 14:15] VITALS: BP 149/66
--- NOTE | 2018-10-24 16:48 | NUR ---
Received awake on bed. Due medications given as prescribed. With PICC line at left arm, to check H&H every 8 hours, next due at 9am. With IV at Right forearm, Normal saline at 125cc/hr infusing well. On stand by assist when going to the bathroom to pass urine. A/w to open bowels, to send stool specimen for tests. With O2 at 2lpm via nasal cannula. Alert and oriented x 4. With at bedside. Patient on heart monitor, ST. No febrile episode the whole shift. On Reverse isolation- patient neutropenic. Patient seen by Dr. Browne this AM, to have EGD once bloods corrected; patient to discuss with relatives if to have EGD- As per Dr. Browne, to inform her once patient agrees to have EGD. Patient seen by Dr. Hernandez, to discontinue every 8 hours H&H monitoring.
[2018-10-24 20:32] VITALS: BP 132/61
--- NOTE | 2018-10-25 02:53 | NUR ---
ASSUMED CARE AROUND 1900. AXOX4. NO S/S ACUTE DISTRESS NOTED OR REPORTED AT THIS TIME. WILL CONT TO MONITOR FOR ANY CHANGES IN CONDITION.
[2018-10-25 03:52] VITALS: BP 112/55
[2018-10-25 08:45] VITALS: BP 160/76
[2018-10-25 10:13] LABS: HEMATOCRIT 21.9 % (37.0-47.0); HEMOGLOBIN 7.5 gm/dL (12.0-15.0); MCH 30.2 pg (26.0-34.0); MCV 88.9 fL (80.0-100.0); PLATELET COUNT 156 thou/uL (150-400); RBC 2.47 mil/uL (4.20-5.00)
[2018-10-25 10:15] LABS: CALCIUM 7.4 mg/dL (8.5-10.1); CREATININE 1.3 mg/dL (0.6-1.0)
[2018-10-25 10:16] LABS: WBC 3.7 thou/uL (4.0-11.0)
[2018-10-25 10:17] LABS: POTASSIUM 2.9 mmol/L (3.5-5.1)
[2018-10-25 10:51] LABS: ABSOLUTE NEUTROPHILS 1.7 thou/uL (1.4-8.2); METAMYELOCYTES 6 %; MYELOCYTES 1 %; PLATELET ESTIMATE NORMAL
--- NOTE | 2018-10-25 13:30 | HC ---
[facility] [place] [address] CONSULTATION Name: FERNANDO CRAIG Room #: 463-P ADM IN M.R.#: [id number] Admission: 10/23/18 ������������������ Attend Phys: Jr Hernandez MD Discharge: ������������������ Date of : 57 Report #: [id number] THIS REPORT FOR: //name// CC: Alex Hernandez DATE OF SERVICE: 10/23/2018 INFECTIOUS DISEASE CONSULTATION REASON FOR CONSULTATION: I was asked to evaluate concerning neutropenic fever. HISTORY OF PRESENT ILLNESS: The patient is a 62-year-old diagnosed with small cell lung cancer in August of this year. Lesion was in the right lower lobe. She has been treated with chemotherapy and radiation. She states she has about 5 more radiation treatments left. She denies any prolonged episodes of neutropenia with her previous chemotherapy doses. Over the past several days, she has noticed progressive weakness along with increased pain in the substernal region with odynophagia. She has had temperature over 101 degrees associated with mild chills and sweats. She has had loose stool as of today. This has been dark in color. No gross blood. No nausea or vomiting. She has been able to eat small amount of food. She is on antibiotics for strep pneumo and MRSA in August for positive bronchoscopy culture. She has a left upper extremity PICC, which is functioning well. She denies any headache, oral lesions, rash, adenopathy, gross bleeding, cough or sputum production, nausea, vomiting, lower abdominal pain, dysuria or frequency, back pain, seizures or stroke symptoms. No depression symptoms. REVIEW OF SYSTEMS: A 10-point review of systems was negative other than what is described above. ALLERGIES: None known. MEDICATIONS: As noted on her MAR, having been given Levaquin earlier this morning. PAST MEDICAL HISTORY: Laryngeal cancer remotely, COPD, gastroesophageal reflux, hypertension, newly diagnosed lung cancer, past smoker, no significant alcohol intake. FAMILY HISTORY: Noncontributory. SOCIAL HISTORY: Negative for recent travel, HIV risks, tuberculosis. PHYSICAL EXAMINATION: VITAL SIGNS: Afebrile and hemodynamically stable, pulse 87, respiratory rate [facility] [address] [place] [address] CONSULTATION Name: FERNANDO CRAIG Room #: 463-P [facility] IN .R.#: [id number] Admission: 10/23/18 ������������������ Attend Phys: Jr Hernandez MD Discharge: ������������������ Date of : 57 Report #: [id number], blood pressure 144/80. GENERAL: She had alopecia. No rashes or decubiti. No palpable adenopathy. HEENT: Eyes are without scleral icterus. Mouth edentulous with no lesions. NECK: Supple, with no thyromegaly or mass. Voice was hoarse. LUNGS: Decreased breath sounds bilaterally with no consolidation or rub. HEART: Regular, without murmur, gallop or rub. ABDOMEN: Soft, mild tenderness in the epigastric region without appreciable mass or hepatosplenomegaly. GENITAL AND RECTAL: Not performed. EXTREMITIES: Without clubbing, cyanosis or edema. NEUROLOGIC: Cranial nerves intact with strength in the upper and lower extremities normal, sensation upper and lower extremities normal, mood normal with no anxiety or depression elicited. LABORATORY AND DIAGNOSTIC STUDIES: Hemoglobin 6.5, WBC 0.8 with 12% neutrophils, platelet count 115,000. Sodium 130, potassium 2.9, bicarb 33, creatinine 2.1. Liver function test normal. Lactate 2.7. Influenza antigen negative. Urinalysis: Rare wbc's, many bacteria. Blood culture and urine culture pending. Chest x-ray clear. CT scan of the abdomen and pelvis showed basilar atelectasis, sludge in the gallbladder and air in the bladder. IMPRESSION: 1. A 62-year-old undergoing chemotherapy and radiation for small cell lung cancer. Now with neutropenic fever associated with her chemotherapy and radiation. 2. Esophagitis from radiation therapy. 3. Possible gastrointestinal bleed, being evaluated by GI service. I suspect upper tract. 4. Chronic obstructive pulmonary disease and previous tobacco use. 5. Previous throat cancer. RECOMMENDATION: 1. We will continue IV antibiotic therapy with vancomycin and cefepime pending culture results. Serial CBCs and chemistry to follow her neutropenia, anemia and acute renal failure. 2. Remain in isolation until her white count increases. If no bump in her counts, may then consider adding in growth factors. ��������������������������������������������� <ELECTRONICALLY SIGNED> ���������������������������������������� By: Brad Callahan MD ��������������������������������������������� 10/25/18 1330 [id number] Brad Callahan MD /nt
[2018-10-25 14:50] VITALS: BP 168/88
--- NOTE | 2018-10-25 16:06 | NUR ---
PATIENT DOING BETTER TODAY. AFEBRILE. LESS ESOPHAGEAL PAIN. WBC UP TO 3.7 WITH AN ANC OF 1700. REMAINS ON REVERSE ISOLATION. EGD DONE AND SHOWED ESOPHAGITIS. BIOPSY'S TAKEN. TOLERATED PROCEDURE WELL. STARTED ON SUCRALFATE AND REMAINS ON PROTONIX BID. UP INDEPENDENTLY AND TOLERATING WELL.
--- NOTE | 2018-10-25 16:40 | NUR ---
IT IS ANTIPATED THAT PT WILL LIKELY BE HERE OVER THE WEEKEND. ONCE MEDICALLY STABLE PT IS TO DC HOME. CM TO FOLLOW INDICATED WITH DC PLANNING.
[2018-10-25 19:27] VITALS: BP 156/75
--- NOTE | 2018-10-26 02:11 | NUR ---
PATIENT AOX4 MAKES PATIENT GETS SHORTNESS OF AIR WITH ACTIVITIES. PATIENT GETS TACHY WITH ACTIVIES. PATIENT DENIED PAIN OR DISCOMFORT. PATIENT IS UP AT MACHO. PATIENT IN BED ASLEEP AT THIS TIME BREAHING REGULAR AND UNLABOURED.
[2018-10-26 07:30] VITALS: BP 169/75
[2018-10-26 13:09] LABS: HEMATOCRIT 24.1 % (37.0-47.0); HEMOGLOBIN 8.4 gm/dL (12.0-15.0); MCH 30.5 pg (26.0-34.0); MCHC 34.7 g/dL (28.0-37.0); MCV 87.9 fL (80.0-100.0); PLATELET COUNT 195 thou/uL (150-400); RBC 2.74 mil/uL (4.20-5.00); RDW 13.5 % (10.5-14.5); WBC 6.6 thou/uL (4.0-11.0)
[2018-10-26 14:12] VITALS: BP 169/81
[2018-10-26 14:27] LABS: ABSOLUTE NEUTROPHILS 2.7 thou/uL (1.4-8.2); METAMYELOCYTES 10 %; MYELOCYTES 5 %
--- NOTE | 2018-10-26 16:05 | NUR ---
PT ALERT AND ORIENTED TIMES FOUR. VSS, 96%2L, IVF INFUSING PER ORDER. PT DENIES PAIN. C/O SOA ON EXERTION. PT TOLERATES MEDS AND ATE SMALL PORTIONS OF HER MEALS TODAY. PT UP WITH STANDBY ASSIT. AT BEDSIDE FOR MOST OF THE SHIFT. PT SLOWLY PROGRESSING TOWRADS POC GOALS.
[2018-10-26 20:25] VITALS: BP 160/88
[2018-10-27 04:02] VITALS: BP 144/72
--- NOTE | 2018-10-27 04:47 | NUR ---
Pt. rested quietly during the night when checked on during frequent rounds. She offers no c/o pain or shortness of air. Up ad jim in her room and she is steady on her feet.
[2018-10-27 04:54] LABS: HEMATOCRIT 21.3 % (37.0-47.0); HEMOGLOBIN 7.4 gm/dL (12.0-15.0); MCH 30.5 pg (26.0-34.0); MCHC 34.7 g/dL (28.0-37.0); RBC 2.43 mil/uL (4.20-5.00); RDW 13.7 % (10.5-14.5); WBC 6.2 thou/uL (4.0-11.0)
[2018-10-27 04:59] LABS: CALCIUM 7.6 mg/dL (8.5-10.1); CREATININE 1.3 mg/dL (0.6-1.0)
[2018-10-27 05:01] LABS: POTASSIUM 2.6 mmol/L (3.5-5.1)
[2018-10-27 08:00] VITALS: BP 168/87
--- NOTE | 2018-10-27 12:46 | NUR ---
PT LUDLPICC RUNNING MEDS THROUGH RED PORT AND PURPLE PORT OCCLUDING. FLUSHED BRISKLY WITH NS AND SCANT BLOOD RETURN. INSTILLED ALTEPLASE 2MG AT 1120, RN TO DRAW BACK 5MLS AND FLUSH WITH 20CC NS AT 1220.
[2018-10-27 15:00] VITALS: BP 156/79
--- NOTE | 2018-10-27 16:46 | NUR ---
Received awake on bed. Due medications given as prescribed. With Oxygen at 2lpm via nasal cannula. Alert and oriented x 4. Able to go to the bathroom independently, with stand by assist. With PICC line at left upper arm, 1 lumen unable to flush as handed over by night staff, other lumen with NS at 125cc/hr with Potassium chloride 1 out 2 bags ongoing. Called IV nurse to assess 1 lumen of PICC line; PICC line- 1 lumen unclogged as per protocol, line aspirated after 1 hour and flushed 20 mls Normal saline. 2nd bag of Potassium chloride given afterwards. Repeat Potassium level done and specimen sent to laboratory. Magnesium given after Potassium chloride 2 bags, asked IV nurse if patient can have a peripheral line but patient cannot have another peripheral line. 2nd bag of magnesium given as prescribed, had to call pharmacy to activate order for 2nd bag as 2nd bag came as discontinued; verified with pharmacy staff and given 2nd bag as prescribed. Patient with relative at bedside the whole shift. Patient passed stool sample but lab called that there's not enough sample collected; advised patient to infrom nurse once she opens bowels again. Patient not on isolation protocol anymore as per Dr. Hernandez.
[2018-10-27 19:44] VITALS: BP 155/82
[2018-10-28 04:55] VITALS: BP 147/82
[2018-10-28 05:01] LABS: HEMATOCRIT 21.4 % (37.0-47.0); HEMOGLOBIN 7.4 gm/dL (12.0-15.0); MCH 30.5 pg (26.0-34.0); MCHC 34.5 g/dL (28.0-37.0); MCV 88.3 fL (80.0-100.0); RBC 2.42 mil/uL (4.20-5.00); RDW 13.8 % (10.5-14.5); WBC 6.6 thou/uL (4.0-11.0)
[2018-10-28 05:20] LABS: CALCIUM 7.9 mg/dL (8.5-10.1); CREATININE 1.3 mg/dL (0.6-1.0); POTASSIUM 3.1 mmol/L (3.5-5.1)
[2018-10-28 08:54] VITALS: BP 152/86
[2018-10-28 15:13] VITALS: BP 153/67
[2018-10-28] MEDS ORDERED: AUGMENTIN400 MG/53 PO (16:00)
[2018-10-28] MEDS ORDERED: CARAFATE 11 GM/10 M1 PO (16:01)
[2018-10-28] MEDS ORDERED: LIDOCAINE VISC100 ML PO (16:01)
[2018-10-28 16:10] VITALS: BP 153/67
--- NOTE | 2018-10-28 16:24 | NUR ---
ASSUMED CARE 0700. VSS, ST ON TELE THAT INCREASE TO 130'S WHEN AMBULATING. PLANS TO DC HOME WITH PO ANTIBIOTICS, LIDOCAINE SWISH AND SWALLOW, AND SUCRALFATE SCRIPTS. INDEPENDENT WITH MEALS, AMBULATES TO BATHROOM. CALLS APPROPRIATELY FOR ASSISTANCE.
--- NOTE | 2018-10-28 17:11 | NUR ---
CARE TEAM INDICATED THAT PT IS MEDICALLY STABLE TO DISCHARGE HOME THIS DAY. PT IS TO DC HOME WITH NO NEEDS. NO OTHER CM INTERVENTION INDICATED AT THIS TIME. CASE CLOSED.
--- NOTE | 2018-10-28 19:56 | HC ---
[facility] [place] [place] [address] CONSULTATION Name: FERNANDO CRAIG Room #: 463-P [facility] IN M.R.#: [id number] Admission: 10/23/18 ������������������ Attend Phys: Jr Hernandez MD Discharge: 10/28/18 ������������������ Date of : 57 Report #: [id number] THIS REPORT FOR: //name// CC: Alex Cavazos MD HISTORY OF PRESENT ILLNESS: This patient is known to me from recent consultation and treatment for limited stage small cell lung cancer diagnosed in August. She was last seen in the office on the 10/08/2018, at which point she received her third cycle of cisplatin RECENTERER-16 and had received 15 of 30 planned radiation treatments concomitantly to the primary tumor administered by Dr. Raz Christensen. She was admitted through the Emergency Room with a fever and expected neutropenia based on the current timing. PAST MEDICAL HISTORY: She has a longstanding history of chronic obstructive pulmonary disease and is followed by Dr. Ephraim Cavazos. She was treated for a laryngeal squamous cell cancer in [address] Christensen in with cisplatin and apparent cure. ALLERGIES: None known. MEDICATIONS: As in the MFR. SOCIAL HISTORY: She is a reformed smoker, stopping after 25 pack years. FAMILY HISTORY: Noncontributory. REVIEW OF SYSTEMS: Positive for current hoarseness and weakness. She has been having difficulty swallowing and complaining of pain and sore throat were not relieved with antacids including Gaviscon and omeprazole. She noted a tarry stool. She did not have any shaking chills. Remaining system review is as in the history of present illness. PHYSICAL EXAMINATION: GENERAL: Shows her to be alert. HEENT: Shows alopecia. She is wearing glasses. Voice is hoarse and soft. NECK: Supple. LYMPHATICS: Revealed no palpable supraclavicular adenopathy. CHEST: Clear. She does have a radiation change anteriorly over her sternum from radiation. ABDOMEN: Soft. SKIN: Normal turgor. EXTREMITIES: No clubbing, cyanosis, edema. [facility] [address] [place] [address] CONSULTATION Name: KIARAFERNANDOAndrea DANIELS Room #: 463-P [facility] IN [facility].#: [id number] Admission: 10/23/18 ������������������ Attend Phys: Jr Hernandez MD Discharge: 10/28/18 ������������������ Date of : 57 Report #: [id number] NEUROLOGIC: No focal localized signs. PSYCHIATRIC: Confused. ASSESSMENT: Limited stage small cell lung cancer post-3 cycles of cisplatin and etoposide and expected neutropenia with fever. PLAN: She has been cultured and placed empirically on antibiotics. She was seen by GI who I anticipate will be performing an EGD and suspect that she has radiation, esophagitis, source of her anemia and current blood loss. We will not give her a colony stimulating factors due to her current radiation therapy. She has received approximately 25 of planned 30 doses of radiation and discussed we probably need to reschedule her upcoming treatments post her recovery/improvement. Time aragon, her white count should be recovering soon and may require red cell transfusion for recurring anemia. She was noted to be hypokalemic on admission and would recommend we also check a magnesium level because of recent cisplatin and possible hypomagnesemia in addition. Thanks for notifying me of her admission, allowing me to participate in her care. ��������������������������������������������� <ELECTRONICALLY SIGNED> ���������������������������������������� By: Cielo Georges MD ��������������������������������������������� 10/28/18 1955 1037 36 Cielo Georges MD /nt
--- NOTE | 2018-10-29 15:06 | PATH ---
[facility] [address] [place] [place] [address] PATHOLOGY RPT PROCEDURE Name: KIARAAPRIL JEREMIAH Room #: 463-P [facility] IN M.R.#: [id number] ������������������ Admission: 10/23/18 ������������������ Date of : 57 Discharge: 10/28/18 Report #: [id number] Path Case #: [id number] [facility] Accession Number: [id number] . 01 Material submitted: . esophagus - BX ESOPHAGITIS HX RADIATION THERAPY . 01 Clinical history: . Pre-OP DX: Upper GI bleed, melena Post-OP DX: Esophagitis, esophageal stricture . 02 Diagnosis: Tissue designated as "esophagitis history radiation therapy", endoscopic biopsy: - All fragments comprised of fibrinopurulent exudate material, ulceration, bacterial aggregates, granulation tissue along with muscularis propria (please see comment). LBQ/10/28/2018 . 02 Comment: Examination shows fragments comprised of ulcer, granulation tissue, bacterial aggregates as well as muscularis propria consistent with extensive ulceration. Intact epithelium is not present. The provided history of radiation therapy is noted. A GMS fungal special stain, an AE1/AE3 immunohistochemical stain, CMV, and HSV-1 immunohistochemical stain are ordered. The results of these will be reported in an addendum to follow. (IUV/db; 10/28/2018) . 02 Addendum: . This addendum is issued subsequent to reviewing properly controlled stains performed on block A1. . GMS fungal special stain shows a rare budding yeast and a hyphal form. . AE1/AE3 shows rare detached squamous epithelial cells; no intact epithelium is present. CMV immunohistochemical stain shows no definite viral inclusions. HSV1 immunohistochemical stain shows no definite viral inclusions as well. (IUV/db; 10/29/2018) . . *This test was developed and its performance characteristics determined by [facility]. It has not been cleared or approved by the U.S. Food and Drug Administration. The FDA has determined that such clearance or approval is not necessary. This test is used for clinical purposes. It should not be regarded as investigational or for research. This laboratory is certified [address] [address] PATHOLOGY RPT PROCEDURE Name: APRIL PRESCOTT Room #: 463-P DIS IN M.R.#: [id number] ������������������ Admission: 10/23/18 ������������������ Date of : 57 Discharge: 10/28/18 Report #: [id number] Path Case #: [id number] under the Clinical Laboratory Improvement Amendments of 1988 (CLIA) as qualified to perform high complexity clinical laboratory testing. . Professional services performed by [facility], [address] [place] [address] , [place] [address]. Technical services performed by [facility] at [address] [place] [address], [address], [place] [address]. IZV/10/29/2018 Addendum Electronically Signed by Soni Serrano MD, Pathologist . 02 Electronically signed: . Soni Serrano MD, Pathologist NPI- [id number] . 01 Gross description: . Received in formalin labeled "[place], April, BX esophagitis, Hx radiation," are multiple segments of barnard soft tissue measuring 1.5 x 0.3 x 0.1 cm in aggregate dimensions. The specimen is filtered and entirely submitted in cassette A1. (TSD; 10/25/2018) TOB/TOB . 02 Pathologist provided ICD-10: K22.10 . 02 CPT . 281026, 854721, D44381, I58416 Specimen Comment: A courtesy copy of this report has been sent to Specimen Comment: [phone], , . Specimen Comment: Report sent to ,DR WAGGONER / DR ALEX Performed at: [address], [place], [place] [id number] MD Hiram Taylor MD Phone: [phone] Performed at: 02 [facility] [address] [place], [place] [id number] MD Soni Serrano MD Phone: [phone]
== END 2018-10-28 19:37 | disposition home or self-care (01) | DRG 809 ==
LOC: ER 08:55 → EROBS 10:40 → 4W 10:40
PROVIDERS: Emergency Medicine; Internal Medicine Gastroenterology; Nurse Practitioner; ADMIT Hospitalist
DX: D70.1 Agranulocytosis secondary to cancer chemotherapy (principal); N17.9 Acute kidney failure, unspecified; D62 Acute posthemorrhagic anemia; E44.0 Moderate protein-calorie malnutrition; Z68.1 Body mass index [BMI] 19.9 or less, adult; N39.0 Urinary tract infection, site not specified; C34.90 Malignant neoplasm of unspecified part of unspecified bronchus or lung; K21.0 Gastro-esophageal reflux disease with esophagitis; I10 Essential (primary) hypertension; T45.1X5A Adverse effect of antineoplastic and immunosuppressive drugs, initial encounter; R50.2 Drug induced fever; D61.818 Other pancytopenia; J44.9 Chronic obstructive pulmonary disease, unspecified; E83.51 Hypocalcemia; Z16.12 Extended spectrum beta lactamase (ESBL) resistance; B96.20 Unspecified Escherichia coli [E. coli] as the cause of diseases classified elsewhere; E87.6 Hypokalemia; T50.8X5A Adverse effect of diagnostic agents, initial encounter; Y92.89 Other specified places as the place of occurrence of the external cause; Z87.891 Personal history of nicotine dependence; Z85.21 Personal history of malignant neoplasm of larynx; Z92.21 Personal history of antineoplastic chemotherapy; Z92.3 Personal history of irradiation; Z79.899 Other long term (current) drug therapy
CPT/HCPCS: 10045; 62110; 62900; 70005

== ENCOUNTER 2018-11-20 12:21 | Inpatient (IN) | payer BC, OTHER ==
[~2018-11-20] VITALS: Ht 157.5 cm; Wt 45.0 kg
[2018-11-20] VITALS (7 sets, daily range): BP systolic 104–193; BP diastolic 59–86
[~2018-11-20 12:21] MED LIST changes: +AUGMENTIN400 MG/53 PO; +CARAFATE 11 GM/10 M1 PO; +LIDOCAINE VISC100 ML PO; +ZYPREXA 10 MG T10 MG PO
[2018-11-20 12:50] LABS: MCH 31.1 pg (26.0-34.0); MCHC 34.7 g/dL (28.0-37.0); MCV 89.6 fL (80.0-100.0); RBC 1.65 mil/uL (4.20-5.00); RDW 15.8 % (10.5-14.5)
[2018-11-20 12:55] LABS: WBC 0.3 thou/uL (4.0-11.0)
[2018-11-20 12:56] LABS: HEMATOCRIT 14.8 % (37.0-47.0); HEMOGLOBIN 5.2 gm/dL (12.0-15.0)
[2018-11-20 12:59] LABS: CREATININE 1.7 mg/dL (0.6-1.0); POTASSIUM 3.7 mmol/L (3.5-5.1)
[2018-11-20 13:03] LABS: TOTAL BILIRUBIN 0.3 mg/dL (<0.1-1.0); TOTAL PROTEIN 6.7 g/dL (6.4-8.2)
[2018-11-20 13:19] LABS: URINE BILIRUBIN NEGATIVE (Negative); URINE BLOOD NEGATIVE (Negative); URINE CLARITY CLEAR; URINE COLOR YELLOW; URINE GLUCOSE-RANDOM* NEGATIVE (Negative); URINE KETONES NEGATIVE (Negative); URINE LEUKOCYTES NEGATIVE (Negative); URINE NITRITE NEGATIVE (Negative); URINE PROTEIN (DIPSTICK) 1+ (Negative); URINE SPECIFIC GRAVITY 1.015 (1.005-1.035); URINE UROBILINOGEN 0.2 E.U./dl (0.2-1.0)
[2018-11-20 13:31] LABS: BACTERIA 1-9 Few /HPF (None Seen); CASTS None Seen /LPF (None Seen); CRYSTALS None Seen /LPF (None Seen); SQUAMOUS 4-10 Moderate /LPF (0-3); URINE RBC None Seen /HPF (0-2); URINE WBC 0-5 Rare /HPF (0-5)
[2018-11-20 13:32] LABS: TRANSITIONAL EPITHEL CELL 0-3 Few /LPF (None Seen)
[2018-11-20] MEDS ORDERED: VENTOLIN HFA 1818 GM INH (14:21)
[2018-11-20] MEDS ORDERED: NYSTATIN100000 UNI SW&SWALLOW (14:21)
[2018-11-20] MEDS ORDERED: COMPAZINE10 MG PO (14:22)
[2018-11-20] MEDS ORDERED: MAGIC MOUTHWASH SWISH&SPIT (14:22)
[2018-11-20] MEDS ORDERED: MAGOX 400400 MG PO (14:23)
[2018-11-20] MEDS ORDERED: KLOR-CON 1010 MEQ PO (14:23)
[2018-11-20] MEDS ORDERED: OXYCODONE HCL 55 MG PO (14:23)
[2018-11-20 14:34] LABS: ATYPICAL LYMPHS 12 %
[2018-11-20 14:36] LABS: PLATELET COUNT 10 thou/uL (150-400); PLATELET ESTIMATE MARKEDLY DECREASED
[2018-11-20 14:37] LABS: ANISOCYTOSIS 1+; POIKILOCYTOSIS 1+
[2018-11-20 14:38] LABS: HYPOCHROMASIA SLIGHT
[2018-11-21 03:35] VITALS: BP 157/74
[2018-11-21 05:37] LABS: ABSOLUTE NEUTROPHILS 0.4 thou/uL (1.4-8.2); BASOPHILS 0.4 % (0.0-2.0)
[2018-11-21 05:39] LABS: EOSINOPHILS 0.7 % (0.0-3.0); HEMATOCRIT 24.8 % (37.0-47.0); LYMPHOCYTES 15.2 % (24.0-44.0); MCH 31.4 pg (26.0-34.0); MCV 87.2 fL (80.0-100.0); MONOCYTES 43.5 % (1.0-8.0); POLYS 40.2 % (36.0-66.0); RBC 2.84 mil/uL (4.20-5.00); RDW 14.6 % (10.5-14.5)
[2018-11-21 06:01] LABS: HEMOGLOBIN 8.9 gm/dL (12.0-15.0)
[2018-11-21 06:03] LABS: PLATELET COUNT 11 thou/uL (150-400); WBC 0.9 thou/uL (4.0-11.0)
[2018-11-21 07:59] VITALS: BP 149/77
[2018-11-21 11:19] VITALS: BP 151/78
[2018-11-21 15:57] VITALS: BP 148/83
--- NOTE | 2018-11-21 16:08 | EKG ---
[place] [address] [employer] [facility] [facility] [place] [address] ELECTROCARDIOGRAM REPORT Name: FERNANDO CRAIG Room #: 362-P ADM IN M.R.#: [id number] ������������������ Admission: 11/20/18 ������������������ Attend Phys: Jeanette Tucker MD Discharge: ������������������ Date of : 57 Report #: [id number] ����������������������������������������������������������������� [id number] THIS REPORT FOR: //name// [facility] ED Test Date: 2018-11-20 Test Time: 13:01:50 Pat Name: FERNANDO CRAIG Department: Room: 362 Gender: F Professor Of Anthropology: GISSELLE : 1955 Requested By: Natasha Preston Order Number: [id number] MD: Tonio Larry Measurements Intervals [place] Rate: 124 P: 80 CT: 171 QRS: 65 QRSD: 70 T: 62 QT: 289 QTc: 415 Interpretive Statements Sinus tachycardia Probable left atrial enlargement Anteroseptal infarct, age indeterminate Compared to ECG 10/23/2018 09:28:39 Sinus rhythm no longer present Myocardial infarct finding still present Electronically Signed On 11-21-2018 16:08:46 CDT by Tonio Larry [email or web address] ��������������������������������������������� <ELECTRONICALLY SIGNED> ���������������������������������������� By: Tonio Larry MD ��������������������������������������������� 11/21/18 1608 1301 1301 Tonio Larry MD /JOJO
[2018-11-21 19:40] VITALS: BP 163/84
[2018-11-21 23:50] VITALS: BP 144/68
[2018-11-22 04:35] VITALS: BP 138/63
[2018-11-22 08:24] VITALS: BP 147/61
[2018-11-22 12:15] VITALS: BP 156/67
[2018-11-22 12:18] LABS: MCV 89.3 fL (80.0-100.0)
[2018-11-22 12:20] LABS: HEMATOCRIT 25.3 % (37.0-47.0); HEMOGLOBIN 8.9 gm/dL (12.0-15.0); MCH 31.2 pg (26.0-34.0); RBC 2.84 mil/uL (4.20-5.00); RDW 15.5 % (10.5-14.5)
[2018-11-22 13:29] LABS: ATYPICAL LYMPHS 1 %; METAMYELOCYTES 6 %; PLATELET ESTIMATE MARKEDLY DECREASED
[2018-11-22 13:33] LABS: PLATELET COUNT 13 thou/uL (150-400)
[2018-11-22 13:34] LABS: TOXIC GRANULATION 1+
[2018-11-22 13:37] VITALS: BP 156/67
[2018-11-22 14:06] LABS: ABSOLUTE NEUTROPHILS 2.2 thou/uL (1.4-8.2)
[2018-11-22 14:07] LABS: WBC 3.2 thou/uL (4.0-11.0)
[2018-11-22 15:30] VITALS: BP 164/70
[2018-11-22 21:10] VITALS: BP 171/80
[2018-11-23 04:00] VITALS: BP 157/69
[2018-11-23 05:33] LABS: PLATELET COUNT 21 thou/uL (150-400); WBC 8.2 thou/uL (4.0-11.0)
[2018-11-23 05:36] LABS: HEMATOCRIT 26.5 % (37.0-47.0); HEMOGLOBIN 9.5 gm/dL (12.0-15.0); MCH 31.6 pg (26.0-34.0); MCHC 35.7 g/dL (28.0-37.0); MCV 88.5 fL (80.0-100.0); RDW 15.4 % (10.5-14.5)
[2018-11-23 08:09] LABS: METAMYELOCYTES 7 %; MYELOCYTES 1 %
[2018-11-23 08:10] LABS: TOXIC GRANULATION 2+
[2018-11-23 08:21] VITALS: BP 170/76
[2018-11-23 11:27] VITALS: BP 139/90
[2018-11-23 14:33] LABS: URINE BILIRUBIN NEGATIVE (Negative); URINE BLOOD 1+ (Negative); URINE CLARITY CLOUDY; URINE COLOR YELLOW; URINE GLUCOSE-RANDOM* NEGATIVE (Negative); URINE KETONES 1+ (Negative); URINE LEUKOCYTES-REFLEX NEGATIVE (Negative); URINE NITRITE-REFLEX NEGATIVE (Negative); URINE PROTEIN (DIPSTICK) 2+ (Negative); URINE UROBILINOGEN 0.2 E.U./dl (0.2-1.0)
[2018-11-23 14:50] LABS: AMORPHOUS URATES Many /LPF (None Seen); BACTERIA-REFLEX None Seen /HPF (None Seen); COARSE GRANULAR CASTS >10 Many /LPF (None Seen); SQUAMOUS 0-3 Few /LPF (0-3); URINE RBC 0-2 Rare /HPF (0-2); URINE WBC-REFLEX 0-5 Rare /HPF (0-5)
[2018-11-23 16:33] VITALS: BP 130/66
[2018-11-23 19:23] VITALS: BP 133/64
[2018-11-24 03:34] VITALS: BP 140/66
[2018-11-24 05:39] LABS: HEMOGLOBIN 7.9 gm/dL (12.0-15.0)
[2018-11-24 05:41] LABS: HEMATOCRIT 22.5 % (37.0-47.0); MCH 31.1 pg (26.0-34.0); MCHC 35.2 g/dL (28.0-37.0); MCV 88.4 fL (80.0-100.0); PLATELET COUNT 29 thou/uL (150-400); RBC 2.54 mil/uL (4.20-5.00); RDW 15.2 % (10.5-14.5); WBC 15.2 thou/uL (4.0-11.0)
[2018-11-24 06:28] LABS: ABSOLUTE NEUTROPHILS 14.3 thou/uL (1.4-8.2); PLATELET ESTIMATE DECREASED
[2018-11-24 06:29] LABS: TOXIC GRANULATION 2+
[2018-11-24 08:03] VITALS: BP 158/77
[2018-11-24 11:52] VITALS: BP 139/66
[2018-11-24 16:15] VITALS: BP 152/62
[2018-11-24 19:13] VITALS: BP 174/64
[2018-11-25] VITALS (9 sets, daily range): BP systolic 150–194; BP diastolic 64–82
[2018-11-25 05:45] LABS: HEMATOCRIT 21.6 % (37.0-47.0); WBC 13.9 thou/uL (4.0-11.0)
[2018-11-25 05:47] LABS: HEMOGLOBIN 7.7 gm/dL (12.0-15.0); MCH 31.5 pg (26.0-34.0); MCHC 35.4 g/dL (28.0-37.0); MCV 88.9 fL (80.0-100.0); PLATELET COUNT 39 thou/uL (150-400); RBC 2.43 mil/uL (4.20-5.00); RDW 15.4 % (10.5-14.5)
[2018-11-25 06:47] LABS: ABSOLUTE NEUTROPHILS 11.1 thou/uL (1.4-8.2); METAMYELOCYTES 2 %
[2018-11-25 06:48] LABS: ANISOCYTOSIS 1+; PLATELET ESTIMATE DECREASED
[2018-11-25 11:26] LABS: CALCIUM 8.8 mg/dL (8.5-10.1); CREATININE 1.5 mg/dL (0.6-1.0)
[2018-11-25 11:27] LABS: POTASSIUM 2.7 mmol/L (3.5-5.1)
[2018-11-25] MEDS ORDERED: ROCEPHIN 11 GM/1001 IV (16:18)
[2018-11-26 00:03] VITALS: BP 161/82
[2018-11-26 03:42] VITALS: BP 185/91
[2018-11-26 07:10] VITALS: BP 165/87
[2018-11-26] MEDS ORDERED: IRON325 PO (09:24)
[2018-11-26 10:47] VITALS: BP 179/76
[2018-11-26 13:49] VITALS: BP 179/76
--- NOTE | 2018-11-28 12:17 | HC ---
[facility] [place] [address] CONSULTATION Name: FERNANDO CRAIG Room #: 359-P [facility] IN M.R.#: [id number] Admission: 11/20/18 ������������������ Attend Phys: Jeanette Tucker MD Discharge: 11/26/18 ������������������ Date of : 57 Report #: [id number] THIS REPORT FOR: //name// CC: [facility] Raz Tucker HISTORY OF PRESENT ILLNESS: This patient is well known to me from recent therapy of a limited stage small cell lung cancer. She was seen today in followup by my nurse practitioner and was found to be febrile and neutropenic. She is referred to [facility] for admission with blood cultures and empiric antibiotic therapy, in addition to transfusion and colony-stimulating factors. Her fourth and last cycle of treatment was administered on 11/08 and she hopefully will be recovering soon timewise from this last treatment. She also just concluded concomitant radiation therapy to her lung primary cancer by Dr. Ryan Christensen through [facility]. PAST MEDICAL HISTORY: She has a longstanding history of chronic obstructive lung disease and is followed by Dr. Neal Cavazos. She was treated previously for laryngeal cancer in [address] Christ[address] and Dr[address] Worthy with cisplatin and radiation therapy and an apparent cure. ALLERGIES: She has no known allergies. MEDICATIONS: As in the MFR. SOCIAL HISTORY: She is a reformed smoker who stopped after 25 pack years. FAMILY HISTORY: Noncontributory. REVIEW OF SYSTEMS: Negative for any chilling until after we started IV fluids this morning while we waited on her lab results as she was clinically dry/hypotensive. She has had ongoing issues with radiation esophagitis. She has not recently detected any melena or bright red bleeding. She denies any new pain or masses. She did not notice a fever until we took vital signs today. PHYSICAL EXAMINATION: GENERAL: Shows her to be alert. Her was present. HEENT: She is alopecic, wearing glasses. She has very hoarse voice of low volume and timbre. Her mouth was clear. NECK: Supple. CARDIOVASCULAR: Normal S1, S2. CHEST: Clear. ABDOMEN: Soft. [facility] [address] [address] CONSULTATION Name: FERNANDO CRAIG Room #: 359-P [facility] IN [facility].#: [id number] Admission: 11/20/18 ������������������ Attend Phys: Jeanette Tucker MD Discharge: 11/26/18 ������������������ Date of : 57 Report #: [id number] EXTREMITIES: Show no clubbing, cyanosis or edema. SKIN: Showed poor turgor. NEUROLOGIC: No localizing signs. PSYCHIATRIC: Not agitated or confused. ASSESSMENT: Limited stage small cell lung cancer with recently completed 4-cycle of etoposide with [place]-based chemotherapy and concomitant radiation therapy to primary tumor. PLAN: She has been cultured and started on empiric antibiotics. I have discussed her case with the physician court assistant in the Emergency Room, who also recommended culture through her PICC line and removing this as it may be the source of her infection as well as covering her also with vancomycin. She is scheduled to receive 2 units of packed cells and we will await daily CBCs. She is receiving Neupogen which we will continue until her granulocytes are greater than 2000. ��������������������������������������������� <ELECTRONICALLY SIGNED> ���������������������������������������� By: Cielo Georges MD ��������������������������������������������� 11/28/18 1217 1707 0907 Cielo Georges MD /nt
== END 2018-11-26 14:17 | disposition home health service (06) | DRG 871 ==
LOC: ER 12:21 → 3W 15:53 → EROBS 15:53 → 3W 17:58 → ENTRNSPT 11-26 11:09 → EDTRNSPTSTS 11-26 11:13 → 3W 11-26 14:17
PROVIDERS: Internal Medicine; Internal Medicine Hematology & Oncology; Physician Assistant; Specialist; ADMIT Internal Medicine
PROC: 30233N1 Transfusion of Nonautologous Red Blood Cells into Peripheral Vein, Percutaneous Approach (ICD-10-PCS; principal; 2018-11-20)
DX: A40.8 Other streptococcal sepsis (principal); J96.21 Acute and chronic respiratory failure with hypoxia; J18.9 Pneumonia, unspecified organism; D61.818 Other pancytopenia; C34.90 Malignant neoplasm of unspecified part of unspecified bronchus or lung; J44.9 Chronic obstructive pulmonary disease, unspecified; I10 Essential (primary) hypertension; D63.8 Anemia in other chronic diseases classified elsewhere; N30.90 Cystitis, unspecified without hematuria; B96.20 Unspecified Escherichia coli [E. coli] as the cause of diseases classified elsewhere; K21.9 Gastro-esophageal reflux disease without esophagitis; E87.6 Hypokalemia; E83.42 Hypomagnesemia; F41.9 Anxiety disorder, unspecified; T36.8X5A Adverse effect of other systemic antibiotics, initial encounter; Y92.89 Other specified places as the place of occurrence of the external cause; Z85.21 Personal history of malignant neoplasm of larynx; Z92.21 Personal history of antineoplastic chemotherapy; Z92.3 Personal history of irradiation; Z87.891 Personal history of nicotine dependence; Z79.899 Other long term (current) drug therapy
CPT/HCPCS: 10879